=== PATIENT | female | born 1950 | race Caucasian/White ===

== ENCOUNTER → 2018-10-06 13:26 | Day surgery (SDC) | payer MEDICARE ==
[~2018-10-06] VITALS: Ht 152.4 cm; Wt 77.3 kg
--- NOTE | ~2018-10-06 | OP ---
PATIENT NAME: JAVIER KO MEDICAL RECORD: [id number] LOCATION:[id number] ADMISSION DATE: SURGEON: ALEJO DONATO MD DATE OF OPERATION: 10/06/2018 PROCEDURE: Colonoscopy with polypectomy. REFERRING PHYSICIAN: Aurea Gallegos MD INDICATIONS: Ms. Ko is a delightful 68-year-old woman, who is referred by Dr. Gallegos for screening colonoscopy. Her last colonoscopy was with Dr. Rosa on 02/06/2013 with findings showing a small adenomatous ascending colon polyp and mild internal hemorrhoids. She presents for outpatient colonoscopy. PREMEDICATIONS: Total IV anesthesia (asthma, obstructive sleep apnea, ASA 3), propofol 400 mg. INSTRUMENT: Olympus video colonoscope, pediatric. PROCEDURE AND FINDINGS: After receiving informed consent, Ms. Ko was placed in left lateral decubitus position and sedated as per anesthesia. After achieving adequate level of sedation, digital rectal exam was performed that showed no external hemorrhoidal tags, fissures, or fistulas; normal sphincter tone; and no palpable rectal masses. A colonoscope was introduced per rectally and advanced to the cecum without difficulty. The cecum, IC valve, and appendiceal orifice were identified and appeared normal. As the colonoscope was withdrawn, careful inspection was made of the lares of the colon. Overall mucosa had normal vascular and fold pattern. At the hepatic flexure, was a 0.3-cm sessile polyp, removed with hot biopsy forceps technique. A few scant shallow diverticula were noted in the sigmoid colon. Retroflexion in the rectum showed mild internal hemorrhoids. A good prep was present. Ms. Ko tolerated the procedure well. No immediate complications. Withdrawal time was 6 minutes. ASSESSMENT: 1. Small hepatic flexure polyp, status post polypectomy. 2. Mild sigmoid diverticulosis coli. 3. Mild internal hemorrhoids. RECOMMENDATIONS: 1. Follow up histopathology. 2. Avoid aspirin, nonsteroidal anti-inflammatory drugs, and HARTLEY-2 inhibitors for 14 days postpolypectomy. 3. High-fiber diet. 4. Anucort HC suppositories one per rectum b.i.d. for 14 days. 5. Surveillance colonoscopy in 3 years. TRANSINT:[id number] Voice Confirmation ID: [id number] DOCUMENT ID: [id number] OPERATIVE REPORT [id number] JAVIER KO ALEJO DONATO MD at 2003 CC: AUREA GALLEGOS [id number] DICTATION DATE: 10/06/18 1558 BILLER: 10/06/181920 [facility] 10/06/18 [id number] [place] [address]
[~2018-10-06 13:26] MED LIST: ACULAR LS5 ML LEFT EYE; ADVAIR DISKUS 250/50; ALBUTEROL SULF8.5 GM INH; BUSPAR 15 MG TA15 MG PO; FORTEO PEN20 MCG SQ; OMEPRAZOLE20 M1 PO; PRAVACHOL40 MG; PRED FORTE5 ML LEFT EYE; PROZAC40 MG PO; ZANAFLEX4 MG PO; [UNRECOGNIZED DRUG - SUPPLY]
[2018-10-06 14:03] LABS: HEMATOCRIT 40.3 % (36.0-48.0); HEMOGLOBIN 13.3 g/dL (12-16); MCH 30.9 pg (26.0-34.0); MCV 93.7 fL (80.0-100.0); MEAN PLATELET VOLUME 9.6 fL (7.4-10.4); RBC 4.3 10x6/uL (4.00-5.40); RDW 14.2 % (11.5-14.5); WBC 5.6 10x3/uL (4.8-10.8)
[2018-10-06 14:19] VITALS: BP 130/69; Ht 152.4 cm; Wt 77.3 kg
[2018-10-06 14:23] LABS: CALC OSMOLALITY 278 mosm/kg (275-300); CARBON DIOXIDE 26.9 mmol/L (21.0-32.0); CHLORIDE - SERUM 102 mmol/L (98-107); CREATININE - SERUM 0.8 mg/dL (0.6-1.3); GLUCOSE 97 mg/dL (74-106); POTASSIUM - SERUM 4.2 mmol/L (3.5-5.1); SODIUM 140 mmol/L (136-145); UREA NITROGEN 12 mg/dL (7-18); eGFR NON AFRICAN AMERICAN 75 mL/min (90-120)
== END | disposition home or self-care (01) ==
LOC: D.OPS 13:26
PROVIDERS: Anesthesiology
DX: Z12.11 Encounter for screening for malignant neoplasm of colon (principal); D12.3 Benign neoplasm of transverse colon; K57.30 Diverticulosis of large intestine without perforation or abscess without bleeding; K64.8 Other hemorrhoids; J45.909 Unspecified asthma, uncomplicated; G47.33 Obstructive sleep apnea (adult) (pediatric); Z01.812 Encounter for preprocedural laboratory examination